=== PATIENT | female | born 1965 | race Caucasian/White ===

== ENCOUNTER 2018-06-30 19:04 | Emergency (ER) | payer MEDICARE, MEDICAID ==
--- NOTE | 2018-06-30 21:13 | ED ---
Lower Extremity - HPI Summary HPI Summary: The pt is a 53 y/o female accompanied by the mother c/o R hip pain s/p a fall at home at 11:00 am. She slipped and fell on a steel wheelchair ramp. She hit the gluteus but not her head and neck against the floor. The pt was able to rise up with some assistance. The hip pain is rated 8/10 in severity. She denies LOC. - History of Current Complaint Chief Complaint: EDExtremityLower Stated Complaint: FALL/RT HIP INJURY Time Seen by Provider: 06/30/18 21:09 Hx Obtained From: Patient, Family/Cloth Grader Supervisor - Mother Hx Last Menstrual Period: victor m Mechanism Of Injury: Fall From A Standing Position Onset of Pain: Prior to Arrival Severity Currently: None Pain Intensity: 8 Pain Scale Used: 0-10 Numeric Timing: Constant Location: Is Discrete @ - RLE Character Of Pain: Sharp Associated Signs And Symptoms: Negative: Syncope Able to Bear Weight: Yes - Allergies/Home Medications Allergies/Adverse Reactions: Allergies Allergy/AdvReac Type Severity Reaction Status Date / Time latex Allergy Rash Verified 06/30/18 19:12 Penicillins Allergy Rash Verified 06/30/18 19:12 Sulfa (Sulfonamide Allergy Hives Verified 06/30/18 19:12 Antibiotics) stainless steel Allergy Severe See Comment Uncoded 06/30/18 19:12 PMH/Surg Hx/FS Hx/Imm Hx Previously Healthy: Yes Endocrine/Hematology History: Denies: Hx Diabetes - hypoglycemic Cardiovascular History: Reports: Hx Hypercholesterolemia Denies: Hx Hypertension, Hx Pacemaker/ICD Respiratory History: Reports: Hx Asthma GI History: Reports: Other GI Disorders - possible gastric lapband History: Denies: Hx Dialysis, Hx Renal Disease Musculoskeletal History: Reports: Other Musculoskeletal History - rheumatoid arthritis Sensory History: Reports: Hx Contacts or Glasses, Hx Hearing Problem - mild [place] Denies: Hx Hearing Aid Opthamlomology History: Reports: Hx Contacts or Glasses Neurological History: Reports: Other Neuro Impairments/Disorders - Multiple sclerosis Psychiatric History: Denies: Hx Eating Disorder, Hx Panic Disorder, Hx of Violent Episodes Against Others - Cancer History Cancer Type, Location and Year: None reported Hx Chemotherapy: No Hx Radiation Therapy: No - Surgical History Surgery Procedure, Year, and Place: , RT LEG SURGERY 1998- W/ A DEON; gastric bypass; CHOLECYSTECTOMY Infectious Disease History: No Infectious Disease History: Denies: Traveled Outside the [place] in Last 30 Days - Family History Known Family History: Positive: Other - Hip problems requiring surgery- Mother - Social History Occupation: Unemployed, Disabled Lives: With Family Substance Use Type: Reports: Marijuana Review of Systems Constitutional: Negative - Loss of consciousness Musculoskeletal: Negative - Head and neck trauma, Other - Positive: R hip pain, a fall All Other Systems Reviewed And Are Negative: Yes Physical Exam - Summary Physical Exam Summary: Appearance: Well-appearing, Well-nourished, lying in bed comfortable; the pt is able to ambulate Skin: Warm, dry, no obvious rash Eyes: sclera anicteric, no conjunctival pallor ENT: mucous membranes moist Neck: deferred Respiratory: No signs of respiratory distress Cardiovascular: Appears well perfused, pulses are nml Abdomen: deferred Musculoskeletal: Pain on internal rotation localized at the greater trochanter ; Tenderness in the greater trochanter Neurological: Awake and alert, mentation is normal, speech is fluent and appropriate Psychiatric: affect is normal, does not appear anxious or depressed Triage Information Reviewed: Yes Vital Signs On Initial Exam: Initial Vitals Temp Pulse Resp BP Pulse Ox 98.5 F 79 16 107/46 94 06/30/18 19:08 06/30/18 19:08 06/30/18 19:08 06/30/18 19:08 06/30/18 19:08 Vital Signs Reviewed: Yes Diagnostics - Vital Signs Vital Signs Temp Pulse Resp BP Pulse Ox 06/30/18 19:08 98.5 F 79 16 107/46 94 - Laboratory Lab Statement: Any lab studies that have been ordered have been reviewed, and results considered in the medical decision making process. - Radiology R Hip/Pelvis X-Ray Radiology Interpretation Completed By: ED Physician - IMPRESSION: No fractures observed. Official report pending Lower Extremity Course/Dx - Course Course Of Treatment: A 53 year-old F presents to the ED with a CC of R hip pain s/p a fall at home at 11:00 am. She slipped and fell on a steel wheelchair ramp. She hit the gluteus but not her head and neck against the floor. The pt was able to rise up with some assistance. The hip pain is rated 8/10 in severity. She denies LOC. A physical exam revealed pain on internal rotation localized at the greater trochanter and tenderness in the greater trochanter. The pt is able to ambulate. A R hip/pelvis X-ray is negative for fractures. Patient will be discharged with a final Dx of hip contusion. I instructed the pt to apply ice and take OTC medications and return to the Ed incase any worsening of sx. Pt is agreeable with this plan. Allergies noted. - Diagnoses Provider Diagnoses: Contusion, hip Discharge - Sign-Out/Discharge Documenting (check all that apply): Patient Departure - DC - Discharge Plan Condition: Good Disposition: HOME Patient Education Materials: Hip Contusion (ED) Referrals: Christopher Westfall MD [Medical Doctor] - 1 Week (if not better) Casandra Dc MD [Primary Care Provider] - Additional Instructions: This should start to heal within the week but may take a few weeks to completely go away. Ice for the first couple of days can be helpful for the pain , as well as OTC pain medications. - Attestation Statements Document Initiated by Scribe: Yes Documenting Scribe: Laura Limon Provider For Whom Scribe is Documenting (Include Credential): Dr. Kiel Moreau MD Scribe Attestation: Laura Morales , scribed for Dr. Kiel Moreau MD on 07/01/18 at 0001.
[2018-06-30 21:46] VITALS: BP 100/62
--- NOTE | 2018-07-01 07:29 | RAD ---
INDICATION: Right hip injury. COMPARISON: There are no relevant prior studies available for comparison. TECHNIQUE: An AP view of the pelvis and frontal and lateral views of the right hip were obtained. FINDINGS: The bones are in normal alignment. No fracture is seen. There is mild bilateral osteoarthritic change in the hips. IMPRESSION: NO EVIDENCE FOR FRACTURE, IF THE PATIENT'S SYMPTOMS PERSIST RECOMMEND FOLLOW-UP IMAGING. R0
== END 2018-06-30 21:46 | disposition home or self-care (01) ==
LOC: ED 19:04
DX: S70.01XA Contusion of right hip, initial encounter (principal); W01.0XXA Fall on same level from slipping, tripping and stumbling without subsequent striking against object, initial encounter; Y92.9 Unspecified place or not applicable
CPT/HCPCS: 99282

== ENCOUNTER 2018-10-31 11:50 | Emergency (ER) | payer MEDICARE, MEDICAID ==
[2018-10-31] MEDS ORDERED: traMADol TAB* 50 MG PO ONE (15:06)
--- NOTE | 2018-10-31 15:23 | ED ---
Lower Extremity - HPI Summary HPI Summary: Patient is a 53-year-old female who presents emergency department for left knee injury that occurred last night. Patient states she tripped over her shoe and twisted left knee. Patient states this morning she is unable to bear weight on left leg secondary to left knee pain. No other injuries were sustained. Patient is a history of MS and was with her mother. Walking makes symptoms worse. Rest makes symptoms better. - History of Current Complaint Chief Complaint: EDExtremityLower Stated Complaint: FALL/ LEFT LEG INJURY Time Seen by Provider: 10/31/18 12:06 Hx Obtained From: Patient Hx Last Menstrual Period: victor m Pain Intensity: 9 - Allergies/Home Medications Allergies/Adverse Reactions: Allergies Allergy/AdvReac Type Severity Reaction Status Date / Time latex Allergy Rash Verified 10/31/18 11:53 Penicillins Allergy Rash Verified 10/31/18 11:53 Sulfa (Sulfonamide Allergy Hives Verified 10/31/18 11:53 Antibiotics) stainless steel Allergy Severe See Comment Uncoded 10/31/18 11:53 PMH/Surg Hx/FS Hx/Imm Hx Previously Healthy: Yes Endocrine/Hematology History: Denies: Hx Diabetes - hypoglycemic Cardiovascular History: Reports: Hx Hypercholesterolemia Denies: Hx Hypertension, Hx Pacemaker/ICD Respiratory History: Reports: Hx Asthma GI History: Reports: Other GI Disorders - possible gastric lapband History: Denies: Hx Dialysis, Hx Renal Disease Musculoskeletal History: Reports: Other Musculoskeletal History - rheumatoid arthritis Sensory History: Reports: Hx Contacts or Glasses, Hx Hearing Problem - mild [place] Denies: Hx Hearing Aid Opthamlomology History: Reports: Hx Contacts or Glasses Neurological History: Reports: Other Neuro Impairments/Disorders - Multiple sclerosis Psychiatric History: Denies: Hx Eating Disorder, Hx Panic Disorder, Hx of Violent Episodes Against Others - Cancer History Cancer Type, Location and Year: None reported Hx Chemotherapy: No Hx Radiation Therapy: No - Surgical History Surgery Procedure, Year, and Place: , RT LEG SURGERY 1998- W/ A DEON; gastric bypass; CHOLECYSTECTOMY Infectious Disease History: No Infectious Disease History: Denies: Traveled Outside the [place] in Last 30 Days - Family History Known Family History: Positive: Other - Hip problems requiring surgery- Mother , Non-Contributory - Social History Occupation: Disabled Lives: With Family Alcohol Use: None Substance Use Type: Reports: Marijuana Smoking Status (MU): Heavy Every Day Tobacco Smoker Review of Systems Positive: Other - Left knee pain Negative: Weakness, Paresthesia, Numbness All Other Systems Reviewed And Are Negative: Yes Physical Exam Triage Information Reviewed: Yes Vital Signs On Initial Exam: Initial Vitals Temp Pulse Resp BP Pulse Ox 98.4 F 65 18 99/71 98 10/31/18 11:51 10/31/18 11:51 10/31/18 11:51 10/31/18 11:51 10/31/18 11:51 Vital Signs Reviewed: Yes Appearance: Positive: Well-Appearing - Pt. lying in bed in NAD. Mother present. Skin: Positive: Warm, Dry Head/Face: Positive: Normal Head/Face Inspection Eyes: Positive: Normal, EOMI Neck: Positive: Supple Musculoskeletal: Positive: Other - Mild pain and edema noted to left proximal tibia. Full ROM of knee. No breaks in skin. No proximal hip or ankle pain. Good pedial pulse. Neurological: Positive: Normal, CN Intact II-III Psychiatric: Positive: Affect/Mood Appropriate Procedures - Splinting Left Lower Extremity Pre-Made Type: knee immobilizer Pre-Proc Neuro Vasc Exam: normal Post-Proc Neuro Vasc Exam: normal Diagnostics - Vital Signs Vital Signs Temp Pulse Resp BP Pulse Ox 10/31/18 11:51 98.4 F 65 18 99/71 98 - Laboratory Lab Statement: Any lab studies that have been ordered have been reviewed, and results considered in the medical decision making process. Lower Extremity Course/Dx - Course Course Of Treatment: Patient presenting for left isolated knee injury. Knee x- ray shows an ovarian osteopenia without definite and fracture, reading per radiology. Patient was reexamined and notes she is unable to bear any weight on knee, Will obtain CAT scan to rule out occult fracture. CT scan shows minimally displaced tibial plateau fracture, reading per radiology. Case discussed with on-call orthopedics, Dr. Abdullahi, who agrees with knee immobilizer and nonweightbearing and will see patient in the office next week. Results and plan discussed with patient. Patient states she does not feel she can use crutches and would prefer walker. Unable to get a walker ER at this time. Patient's mother is comfortable going to the store to get one as soon as they leave. Advised to call orthopedic office on Friday for close follow-up appointment. Ultram prescribed for pain as patient states she has taken it before and did well with that. HOUSING DEVELOPMENT SPECIALIST reviewed. Advised ice and elevation and nonweightbearing. To return to the ER symptoms change or worsen. Patient understands and agrees with plan. - Diagnoses Differential Diagnosis/HQI/PQRI: Positive: Contusion, Dislocation, Sprain, Strain Provider Diagnoses: Tibial plateau fracture, left Discharge - Sign-Out/Discharge Documenting (check all that apply): Patient Departure Patient Received Moderate/Deep Sedation with Procedure: No - Discharge Plan Condition: Good Disposition: HOME Prescriptions: traMADol TAB* [Ultram*] 50 mg PO Q6H PRN #12 tab MDD 4 PRN Reason: Pain Patient Education Materials: Leg Fracture (ED) Referrals: Jaci Tapia MD [Medical Doctor] - Additional Instructions: Call Dr. Tapia's office on Friday for a follow up appointment Keep immobilizer in place Ice and elevate intermittently Do not bear weight on left leg Use a walker for walking Pain medication as directed Return to ER if symptoms change or worsen - Billing Disposition and Condition Condition: GOOD Disposition: Home
[2018-10-31 15:46] VITALS: BP 99/62
== END 2018-10-31 15:45 | disposition home or self-care (01) ==
LOC: ED 11:50
DX: S82.142A Displaced bicondylar fracture of left tibia, initial encounter for closed fracture (principal); J45.909 Unspecified asthma, uncomplicated; M06.9 Rheumatoid arthritis, unspecified; Z72.0 Tobacco use; W22.8XXA Striking against or struck by other objects, initial encounter; Y92.9 Unspecified place or not applicable; G35 Multiple sclerosis; Z88.0 Allergy status to penicillin; Z88.2 Allergy status to sulfonamides; E78.00 Pure hypercholesterolemia, unspecified; M85.862 Other specified disorders of bone density and structure, left lower leg
CPT/HCPCS: 29515; 99283; A9270-GY

== ENCOUNTER 2018-11-13 09:35 | Day surgery (SDC) | payer MEDICARE, MEDICAID ==
--- NOTE | 2018-11-10 16:07 | HP ---
H&P (Free Text) History and Physical: [facility] ALONDRA VEGA MD [address] [place] [phone] [phone] Date of Visit: November 05, 2018 Patient Name: Melody Gu : 1965 Gender: female Age: 53 years Primary Care Physician: Casandra Dc MD Reason for Visit: H&P for ORIF of left knee medial tibial plateau fracture. Scheduled 11/13/2018. HPI: The patient is a 53-year-old female, disabled due to MS, who presents today for a history and physical examination prior to undergoing a scheduled ORIF on her left tibial plateau fracture (currently scheduled for 11/13/[address] Vega). In brief, the patient tripped over a pair of shoes on 10/30/2018 and had immediate pain with weightbearing. She was seen the next morning in the ER on where imaging revealed a medial tibial plateau fracture with a 3-4 mm depression, as well as osteopenia. The patient has elected to undergo an ORIF of this and is scheduled with Dr. Vega on 11/13/2018. PAST MEDICAL HISTORY: 1. Multiple sclerosis. 2. History of gastric bypass. 3. No history of DM or hypertension. 4. Mobile at baseline without the need of an assisted walking device. PAST SURGICAL HISTORY: 1. ORIF of right lower leg in 1998. 2. Gastric bypass in 2000. SOCIAL HISTORY: The patient smokes 1 pack of cigarettes on Fridays only and does not smoke throughout the rest of the week. Rare alcohol use. Currently living with her mother and son in a handicapped-accessible home. Postoperatively she would like to return home and does have insurance that will pay for home health care. CURRENT MEDICATIONS: 1. Tecfidera 250 mg 1 tablet by mouth twice daily. 2. Topamax 100 mg p.o. b.i.d. 3. Omeprazole 20 mg 1 tablet p.o. daily. 4. Abilify 5 mg 1 tablet p.o. daily. 5. Naproxen 375 mg at bedtime p.r.n. 6. Iron 142 mg 1 tablet by mouth daily. 7. Trazodone 200 mg p.o. at bedtime. 8. Simvastatin 10 mg p.o. daily. ALLERGIES: 1. Penicillins, which cause hives. 2. Latex. 3. Stainless steel, which causes hives. 4. Sulfa antibiotics, which causes hives. ROS: Review of systems negative for headaches, lightheadedness, dizziness, nausea, vomiting, constipation, diarrhea, hematuria, other muscle aches and pains other than left knee. Denies difficulty with wound healing, history of blood clots in her lungs or legs. No history of hepatitis, HIV, MRSA, VRE. No difficulty with anesthesia in the past. The patient does report having a stainless steel allergy. PHYSICAL EXAM: GENERAL: Well appearing, in no acute distress. Alert and oriented. Appears slightly older than stated age, sitting in walker comfortably. Appropriate mood and affect. HEENT: Normocephalic, atraumatic. Trachea midline. CARDIAC: Regular rate and rhythm. No murmurs, gallops or rubs. LUNGS: Clear to auscultation bilaterally. No crackles, rhonchi or wheezes. ABDOMEN: Thin, nontender, nondistended. Negative CVA tenderness bilaterally. MUSCULOSKELETAL: Left leg in immobilizer. Immobilizer removed and skin examined with no signs of breakdown around the left knee. Minimal swelling. Tenderness to palpation over the medial aspect. Negative Homans sign. Positive dorsiflexion and plantar flexion and posterior tibial pulse 2+. Light sensation intact distal to left knee. STUDIES: Radiographs: X-rays obtained on 10/31/[address] Vega, which revealed a medial tibial plateau fracture with a 3-4 mm depression, as well as osteopenia. ASSESSMENT: 1. Left knee medial tibial plateau fracture. 2. History of MS. PLAN: 1. The patient is to undergo an ORIF with Dr. Vega on 11/14/2018. He will order hardware that does not contain stainless steel. 2. The patient will be seen on [facility] on Friday for her preop evaluation. 3. Likely discharge to home postoperatively.
[~2018-11-13 09:35] MED LIST: Buffered Lidocaine 1% SYRIN* 1 ML/SYRINGE INTRADERM ONE; Dexamethasone IV* 4 MG/ML 1 ML (4 MG) IV SLOW PU ONE; Famotidine IV* 10 MG/ML 2 ML (20 mg) IV ONE; Lactated Ringers 1000 ML Bag* 1,000 ML IV SCH
[2018-11-13] MEDS ORDERED: fentaNYL* 50 MCG/ML 5 ML VIAL (250 MCG VIAL) ONE (10:23)
[2018-11-13] MEDS ORDERED: Midazolam* 1 MG/ML 5 ML VIAL (5 MG) ONE (10:23)
[2018-11-13] MEDS ORDERED: Propofol* 10 MG/ML 20 ML BTL ONE (10:24)
[2018-11-13] MEDS ORDERED: Lidocaine 2% PF * 5 ML VIAL ONE (10:24)
[2018-11-13] MEDS ORDERED: PROCHLORPERAZINE INJ 5 MG/ML 2 ML VIAL IV PRN (10:26)
[2018-11-13] MEDS ORDERED: oxyCODONE/Acetamin 5/325 MG* TAB PO PRN (10:26)
[2018-11-13] MEDS ORDERED: fentaNYL* 50 MCG/ML 2 ML VIAL (100 MCG VIAL) IV PRN (10:26)
[2018-11-13] MEDS ORDERED: Naloxone* 0.4 MG/ML 1 ML VIAL IV PRN (10:26)
[2018-11-13] MEDS ORDERED: HYDROcodone/ACETAMIN 5-325 MG* 1 TAB PO PRN (10:26)
[2018-11-13] MEDS ORDERED: Dexamethasone IV* 4 MG/ML 1 ML (4 MG) ONE (10:37)
[2018-11-13] MEDS ORDERED: Buffered Lidocaine 1% SYRIN* 1 ML/SYRINGE INTRADERM ONE (10:37)
[2018-11-13] MEDS ORDERED: ceFAZolin 2 GM in NS PREMIX(*) 0 GM/0 ML BAG IVPB ONE (10:38)
[2018-11-13] MEDS ORDERED: Famotidine IV* 10 MG/ML 2 ML (20 mg) ONE (10:38)
[2018-11-13] MEDS ORDERED: Clindamycin 900 MG/D5W BAG(*) 900 MG/50 ML BAG IVPB ONE (10:53)
[2018-11-13] MEDS ORDERED: EPINEPHRINE 1 MG/ML 1 ML VIAL ONE (11:09)
[2018-11-13] MEDS ORDERED: Bupivacaine 0.5% W/EPI SDV* 30 ML VIAL ONE (11:09)
[2018-11-13] MEDS ORDERED: EPHEDrine (Pressors)* 50 MG/ML VIAL ONE (11:47)
[2018-11-13] MEDS ORDERED: Glycopyrrolate IV* 0.2 MG/ML 1 ML VIAL ONE (11:55)
[2018-11-13] MEDS ORDERED: Ondansetron INJ* 2 MG/ML VIAL ONE (13:35)
[2018-11-13] MEDS ORDERED: HYDROcodone/ACETAMIN 5-325 MG* 1 TAB ONE (14:51)
[2018-11-13 15:10] VITALS: BP 108/60
--- NOTE | 2018-11-15 09:05 | OP ---
OPERATIVE REPORT: DATE OF OPERATION: 11/13/18 DATE OF : 69 SURGEON: Dr. Jose Daniel Vega. CIRCULATION SALES REPRESENTATIVE: ANURAG Clarke A physician assistance was required for the length of the procedure for help with the patient positio hyacinth, retraction, instrumentation, and closure. ANESTHESIOLOGIST: Dr. Ryan Henderson. ANESTHESIA: General anesthesia, local anesthesia with 30 cc of Marcaine 0.5% with epinephrine. PRE-OP DIAGNOSIS: Left knee medial tibial plateau fracture, displaced, impacted. POST-OP DIAGNOSIS: Left knee medial tibial plateau fracture, displaced, impacted. OPERATIVE PROCEDURE: 1. Open reduction internal fixation, left knee medial tibial plateau fracture, unicondylar. 2. Arthroscopically aided reduction internal fixation, left knee medial tibial plateau fracture. ANTIBIOTICS: Clindamycin 900 mg IV. IV FLUIDS: See Anesthesia note. TOURNIQUET TIME: 109 minutes at 300 mmHg at the level of the thigh. [id number] TIME: 106 minutes. RADIATION: Large C-arm. Time unknown. SPECIMEN: None. IMPLANTS: Synthes titanium medial tibial plateau plate, locking, 3.5 mm, 4 holes with multiple locki ng screws, 3.5 mm, fully threaded. A 45 cc of cancellous allograft. Mitek Gryphon anchor double capri ded. COMPLICATIONS: None. ESTIMATED BLOOD LOSS: Minimal. INDICATIONS FOR PROCEDURE: The patient is a 53-year-old woman with multiple sclerosis, who injured h erself 14 days preoperatively on 10/30/18 with a trip and fall. At baseline, she walks without cameron tive device. She smokes 1 pack each week on a Friday, but otherwise does not smoke. Lives with her mother and her son in a handicap-accessible home. X-rays and CT scan demonstrated a medial tibial plateau fracture with 3 to 4 mm of displacement and o steopenia. I spoke with the patient about nonoperative and operative treatment, each seeming reasona ble. The patient went home after that clinic visit and while at home decided she wanted surgery and so we arranged the surgery. The patient was seen by her primary care physician for preoperative opti mization and clearance. Due to a history of a metal allergy, we obtained titanium special plates and screws for the procedure from [employer]. Discussed risks and potential complications of surgery. DESCRIPTION OF PROCEDURE: In preoperative holding, the patient signed a written consent. Operative extremity was marked in preoperative holding. The patient was taken back to the operating room and p laced supine on the operating room table. Sedated and intubated. A tourniquet was placed around the left thigh proximally. The left lower extremity was prepped and draped. A bone foam was placed under the left lower extremity. Surgical time-out was performed. Esmarch was applied and the tourniquet was elevated to 300 mmHg. I made a standard skin incision for an approach to the medial tibial plateau. I dissected down to th e sartorius fascia. The patient had a surprisingly robust sartorius fascial layer. I incised this f ascia longitudinally. I then identified the semitendinosus and gracilis hamstring tendons. I incise d these from their insertions to the tibia and placed tagging stitches in them. I next placed the shortest medial tibial plateau plate and sized it, 4-hole plate that it would fit a ppropriately. I next performed my reduction. I did this by first creating a window in the medial tibial plateau. I created this with a 2-mm drill bit and osteotomes. I removed a window of cortical bone and saved i t for later. I entered tamps through that window and using a C-arm showed myself to nicely tamp up t hat bone into what appeared to be nearly anatomic position. To confirm my reduction to see if it was lacking in any way, I next arthroscoped the knee. I made an anterolateral knee arthroscopy portal. I introduced an arthroscope. I evaluated the huynh lofemoral compartment. No articular cartilage wear. There was some synovitic tissue. I dropped ned n to the medial compartment and the knee intercondylar notch. There was synovitis present anteriorly limiting view. I established an anteromedial knee arthroscopy portal under direct visualization. I introduced an arthroscopic shaver. I used this to debride the ligamentum mucosum and the anterior s ynovitis. I used this also to debride a small amount of blood in the medial compartment. Viewing the medial compartment, there was no meniscus tear appreciable. I saw multiple fracture line s in the cartilage and almost all of the cartilage appeared anatomically reduced. I thought that per haps the most central aspect of the cartilage in this compartment was just slightly depressed, perhap s 1 mm. I therefore decided to continue my impacting work with a tamp. I removed arthroscopic shave r and arthroscope from the knee and resumed my open work. I drained the fluid from the knee. I next placed tamps back through the window and the medial tibial plateau to improve the elevation of the most central aspect of the medial tibial plateau, closest to the medial tibial spine. I was abl e to successfully show on AP and lateral view improvement in this position to an anatomic position. Very happy with my bone reduction as confirmed via C-arm and arthroscope, I next placed some bone gra ft. I had 15 cc available of bone graft at this point, cancellous allograft chips. I made these sli ghtly smaller and then packed them into the tibial plateau and used a tamp. More cancellous bone chi ps were required and I ordered some more at this point, but I next placed the plate. I next placed a plate at the appropriate height. I pinned it in place with 3 pins provisionally. I placed a nonlocking screw distally and then a locking screw proximally. I next filled up the plate w ith locking screws and exchanged my nonlocking screw for a locking screw. AP and lateral views showed excellent reduction of bone and excellent placement of hardware. Additional bone graft was now available. I placed an additional 30 cc of cancellous bone chips into the plateau through the open window. I next placed the window of cortical bone back in place and bro ped it into place. I next decided to reapproximate my hamstring tendons. I used a Mitek Gryphon double loaded to do so. I drilled and then placed this anchor just anterior to the medial plate. I apposed the tendon ends to bone with horizontal mattress stitches. Irrigation. I closed the sartorius fascia with running stitches as well as several figure-of- eight stitches usin g Ethibond 0 suture. Irrigation. Closure of subcutaneous tissue with buried simple stitches using V icryl 2.0 suture. Closure of the skin with kush. Local anesthesia injected into the subcutaneous tissue surrounding the skin incision. Xeroform, 4x4s , ABDs, sterile Webril. Juan bandage from foot to proximal thigh. Tourniquet was dropped. The patie nt was awakened and extubated and brought to the PACU. DISPOSITION: The patient was discharged home when medically stable. The patient was to be given Per cocet as needed for pain control, aspirin b.i.d. for DVT prophylaxis and doxycycline, for several day s for infection prophylaxis. We will work on getting home services setup for physical therapy to sta rt range of motion of that knee. The patient will be nonweightbearing for 6 to 8 weeks except for to e- touch weightbearing for transfers. The patient will not be weightbearing as tolerated until 3 mon ths' postoperative. Wound care instructions were provided. [id number]/[facility] #: [id number]
== END 2018-11-13 15:12 | disposition home or self-care (01) ==
LOC: OR 09:35
PROVIDERS: ATTEND Orthopaedic Surgery
DX: S82.142A Displaced bicondylar fracture of left tibia, initial encounter for closed fracture (principal); G35 Multiple sclerosis; W01.0XXA Fall on same level from slipping, tripping and stumbling without subsequent striking against object, initial encounter; Y92.9 Unspecified place or not applicable; Z88.0 Allergy status to penicillin; Z72.0 Tobacco use; F31.9 Bipolar disorder, unspecified
CPT/HCPCS: 76000; C1713; C1776; J0690; J1100; J2250; J2405; J2704; J3010